=== PATIENT | male | born 1940 | race Hispanic/Latino ===

== ENCOUNTER 2017-05-22 13:37 | Emergency (ER) | payer MEDICARE, OTHER ==
[2017-05-22 16:30] LABS: Basophils # (Auto) 0.1 K/mm3 (0.0-0.1); Basophils % (Auto) 0.3 % (0.0-1.8); Eosinophils # (Auto) 0.3 K/mm3 (0.0-0.4); Eosinophils % (Auto) 2.1 % (0.0-4.3); Hemoglobin 10.4 gm/dl (11.8-15.2); Lymphocytes # (Auto) 1.6 K/mm3 (1.2-5.4); Lymphocytes % (Auto) 9.9 % (13.4-35.0); Mean Corpuscular HGB Conc 33 % (32-34); Mean Corpuscular Hemoglobin 31 pg (28-32); Mean Corpuscular Volume 96 fl (84-94); Monocytes # (Auto) 1.4 K/mm3 (0.0-0.8); Platelet Count 337 K/mm3 (140-440); Red Blood Count 3.34 M/mm3 (3.65-5.03); Red Cell Distribution Width 14.6 % (13.2-15.2)
[2017-05-22 17:03] LABS: Albumin 3.3 g/dL (3.9-5); Calcium 8.5 mg/dL (8.4-10.2)
--- NOTE | 2017-05-22 18:10 | Emergency Department Report ---
HPI - General Chief Complaint: Altered Mental Status Time Seen by Provider: 05/22/17 15:22 - HPI HPI: Chief complaint altered mental status History of present illness this is a patient is unable to give any further history the family brought him in because he's been having altered mental status he is here for evaluation awake and alert seems to be roughly baseline mental status was confused with history of dementia ED Past Medical Hx - Past Medical History Previous Medical History?: Yes Hx Hypertension: Yes Hx Dementia: Yes Additional medical history: huntingtons disease - Surgical History Additional Surgical History: brenda - Social History Smoking Status: Unknown if ever smoked Other Social History: Lives at a personal nursing home ED Review of Systems ROS: Stated complaint: COMBATIVE Other details as noted in HPI Comment: Unobtainable due to pts medical conditions Physical Exam - Physical Exam Vital Signs: Vital Signs 05/22/17 13:55 Temperature 97.8 F Pulse Rate 68 Respiratory 16 Rate Blood Pressure 118/73 [Right] O2 Sat by Pulse 98 Oximetry General: Patient patient is awake but disoriented he is at baseline mental status Neck was supple HEENT atraumatic normocephalic EOMI PERRLA Throat was clear no stridor or drooling Chest clear to auscultation Cardiac S1-S2 without murmur gallop or rub Abdomen soft nontender without mass Extremities without clubbing solicited edema Neuro patient is awake but disoriented strength appears grossly nonfocal sensory was unable to be examined due to patient uncooperativeness ED Course Vital Signs 05/22/17 13:55 Temperature 97.8 F Pulse Rate 68 Respiratory 16 Rate Blood Pressure 118/73 [Right] O2 Sat by Pulse 98 Oximetry - Reevaluation(s) Reevaluation #1: 05/22/17 20:13 I did end up being able to get in touch with the caregiver abigail Li who states that things states that patient has been living at her personal nursing home he's beginning these becoming more combative he plans to 89-year-old lady he had a bowel movement on the floor his current medications are not controlling him I did discuss the case with behavioral mental health and they will evaluate the patient that he recommended 1013 ED Medical Decision Making - Lab Data Result diagrams: 05/22/17 15:32 05/22/17 15:32 - Radiology Data Radiology results: report reviewed, image reviewed - Medical Decision Making Patient will need further evaluation by psychiatry given the fact that he is uncooperative and becoming combative at his living situation he was placed on 1013 awaiting further evaluation he is combative intermittently with an anger management problem his Seroquel and his current psychiatric meds are not helping and he is presently awaiting psychiatric evaluation and social work evaluation Critical care attestation.: If time is entered above; I have spent that time in minutes in the direct care of this critically ill patient, excluding procedure time. ED Disposition Clinical Impression: Combative behavior Disposition: DC/TX-65 PSY HOSP/PSY UNIT Is pt being admited?: No Does the pt Need Aspirin: No Condition: Stable Referrals: PRIMARY CARE, [Primary Care Provider] - 3-5 Days Time of Disposition: 20:15
[2017-05-22 18:23] LABS: Bacteria,Urine 4+ /HPF (Negative); Bilirubin,Urine NEG (Negative); Blood,Urine SM (Negative); Color,Urine Yellow (Yellow); Mucus,Urine FEW /HPF; Nitrite,Urine POS (Negative); Protein,Urine <15 mg/dL mg/dL (Negative); Urobilinogen,Urine < 2.0 mg/dL (<2.0)
[2017-05-22 18:25] LABS: WBC,Urine > 182.0 /HPF (0.0-6.0)
--- NOTE | 2017-05-22 18:32 | XRay Report ---
FINAL REPORT EXAM: XR CHEST 1V AP HISTORY: ams TECHNIQUE: Frontal chest radiograph. PRIORS: None. FINDINGS: The cardiomediastinal silhouette is normal. No focal consolidation. Several calcified right mid lung granulomas are seen. No pleural effusion. No pneumothorax. No acute osseous abnormality. IMPRESSION: No acute cardiopulmonary process.
--- NOTE | 2017-05-22 19:29 | Cat Scan Report ---
FINAL REPORT EXAM: CT HEAD/BRAIN WO CON HISTORY: ams TECHNIQUE: CT head without contrast PRIORS: None. FINDINGS: No acute intra-axial or extra-axial hemorrhage is identified. There is no evidence of midline shift or mass effect. There is generalized prominence of ventricles and sulci consistent with mild generalized atrophy. Beaver-white matter differentiation is intact. No acute parenchymal abnormalities seen. There are patchy and confluent hypodensities within the supratentorial white matter. Bony calvarium is grossly intact. Visualized portions of the mastoids and paranasal sinuses are unremarkable. IMPRESSION: Chronic small vessel white matter ischemic change Mild generalized atrophy
[2017-05-23] MEDS ORDERED: MACROBID PO ONE (02:31)
[2017-05-23] MEDS ORDERED: celeXA PO SCH (10:00)
[2017-05-23] MEDS ORDERED: SYNTHROID PO SCH (10:00)
[2017-05-23] MEDS ORDERED: NON-FORMULARY (Quetiapine Fumarate [Seroquel] 25 MG) PO SCH ×2 (10:00→18:00)
[2017-05-23] MEDS: TENORMIN PO SCH (11:25)
[2017-05-23] MEDS: ZESTRIL PO SCH (11:25)
[2017-05-23] MEDS: MACROBID PO SCH ×2 (11:25→23:03)
[2017-05-23] MEDS: SYNTHROID PO SCH (15:38)
[2017-05-23] MEDS ORDERED: NON-FORMULARY (Quetiapine Fumarate [Seroquel] 100 MG) PO SCH (22:00)
[2017-05-23] MEDS: DESYREL PO SCH (23:03)
[2017-05-24] MEDS: MACROBID PO SCH ×2 (11:39→22:33)
[2017-05-24] MEDS: TENORMIN PO SCH (11:40)
[2017-05-24] MEDS: ZESTRIL PO SCH (11:40)
--- NOTE | 2017-05-24 18:53 | Consultation ---
History of Present Illness - Reason for Consult Reason for consult: psych consult - History of Present Psychiatric Illness CC: "no" 76 year old WM presents to [facility]- we've been asked to eval the patient for mental health needs. Patient presents to very confused. He is unable to tell us why he's been brought to the ER. He is unable to any majority of my questions, including those related to depression, jillian, or psychosis. He AAOx1. He did shake his head no to SI/HI/AH/VH. He did deny etoh or illicit drug use. Per patient chart he has been [facility]. Medications and Allergies Allergies Allergy/AdvReac Type Severity Reaction Status Date / Time No Known Allergies Allergy Unverified 05/22/17 13:44 Home Medications Medication Instructions Recorded Confirmed Last Taken Type Atenolol [Tenormin] 25 mg PO DAILY 05/23/17 05/23/17 Unknown History Citalopram [celeXA] 10 mg PO QDAY 05/23/17 05/23/17 Unknown History Levothyroxine Sodium 50 mcg PO QDAY 05/23/17 05/23/17 Unknown History Lisinopril [Prinivil] 5 mg PO QDAY 05/23/17 05/23/17 Unknown History Quetiapine Fumarate [SEROquel] 25 mg PO Q8AM 05/23/17 05/23/17 Unknown History Quetiapine Fumarate [SEROquel] 25 mg PO QPM 05/23/17 05/23/17 Unknown History Quetiapine Fumarate [Seroquel] 100 mg PO QHS 05/23/17 05/23/17 Unknown History Trazodone HCl 50 mg PO QHS 05/23/17 05/23/17 Unknown History Active Meds: Active Medications Atenolol (Tenormin) 25 mg PO DAILY [facility] Last Admin: 05/24/17 11:40 Dose: Not Given Levothyroxine Sodium (Synthroid) 50 mcg PO DAILY@0600 [facility] Last Admin: 05/23/17 15:38 Dose: 50 mcg Lisinopril (Zestril) 5 mg PO QDAY [facility] Last Admin: 05/24/17 11:40 Dose: Not Given Nitrofurantoin Macrocrystals (Macrobid) 100 mg PO BID [facility] Stop: 05/29/17 22:01 Last Admin: 05/24/17 11:39 Dose: 100 mg Quetiapine Fumarate (Seroquel) 25 mg PO QAM@0800 [facility] Last Admin: 05/24/17 11:39 Dose: 25 mg Quetiapine Fumarate (Seroquel) 25 mg PO QPM [facility] Quetiapine Fumarate (Seroquel) 100 mg PO QHS [facility] Last Admin: 05/23/17 23:03 Dose: 100 mg Trazodone HCl (Desyrel) 50 mg PO QHS [facility] Last Admin: 05/23/17 23:03 Dose: 50 mg Past psychiatric history - Past Medical History Past Medical History: other (unknown) - past Psychiatric treatment and history psychiatric treatment history: unknown at this time- patient is on seroquel and an antidepressant- patient can' t answer why. unclear inpt, outp, suicide attempt, family psych, or substance history - Social History Social history: other (lives at [facility]iary- unknown other details) Mental Status Exam - Vital signs Last Vital Signs Temp 97.9 F 05/24/17 08:20 Pulse 66 05/24/17 08:20 Resp 18 05/24/17 12:42 BP 103/52 05/24/17 08:20 Pulse Ox 99 05/24/17 08:20 - Exam Orientation: person Affect: other (constricted) Mood: other (no answer) Thought content: other (impoverished) Thought Process: Circumstantial, Tangential, Disoriented Perceptions: none Speech: paucity Concentration: unable to pay attention Motor activity: agitated Level of consciousness: confused Memory: Recent Impaired, Remote Impaired (couldn't assess full mini mental given he wasn't answering my questions) Results Result Diagrams: 05/22/17 15:32 05/22/17 15:32 All other labs normal. Assessment and Plan Assessment and plan: 76 year old WM presents to [facility]- we've been asked to eval the patient for mental health needs. Patient presents to very confused. He is unable to tell us why he's been brought to the ER. Patient presents per chart secondary to aggressive behaviors A/P: -psychosis nos- aggressiveness- use risperdal instead of seroquel at low dose of 0.5 mg po bedtime- discussed risk, side effects -dementia with behavioral disturbance- consider aricept 5mg po daily for cognition- -will require inpt admission to address his mental health needs
[2017-05-24] MEDS: RisperDAL PO SCH (22:33)
[2017-05-24] MEDS: DESYREL PO SCH (22:33)
[2017-05-25] MEDS: SYNTHROID PO SCH (07:05)
[2017-05-25] MEDS: ZESTRIL PO SCH (11:45)
[2017-05-25] MEDS: MACROBID PO SCH ×2 (11:46→22:45)
[2017-05-25] MEDS: TENORMIN PO SCH (11:46)
[2017-05-25] MEDS: RisperDAL PO SCH (11:46)
--- NOTE | 2017-05-25 12:35 | Progress Note ---
Subjective - Reason for Consult Consult date: 05/25/17 Reason for consult: Psychiatry Follow-up - Chief Complaint Chief complaint: "Hello' 76 y.o. white male presenting to [facility] for confusion. Today patient is confused during the assessment. Patient could not tell me any information about himself or his current residence. No gestures of SI/HI's. Mental Status Exam - Vital signs Last Vital Signs Temp 98.3 F 05/25/17 09:43 Pulse 69 05/25/17 09:43 Resp 20 05/25/17 09:45 BP 104/68 05/25/17 11:46 Pulse Ox 100 05/25/17 09:45 - Exam Narrative exam: MSE: Appearance: calm Behavior: regular eye contact Speech: regular rate and tone Mood: unable to assess Affect: flat Thought Process: unable to assess Thought Content: no gestures of SI/HI's and AVH's Motor Activity: sitting up in bed Cognition: A/O x1 Insight: poor Judgment: poor Assessment and Plan Impression: Unspecified Psychosis/Aggressive at [facility]. Today patient is confused during the assessment. Recommendation/Plan: Continue 1013 with placement to inpatient psy services. Continue Risperdal 0.5 mg PO Daily for psychosis/mood, Trazodone 50 mg PO HS for sleep consolidation, and Aricept 5 mg PO HS for cognition.
[2017-05-25] MEDS: ARICEPT PO SCH (14:18)
[2017-05-25] MEDS: DESYREL PO SCH (22:45)
--- NOTE | 2017-05-26 10:49 | Progress Note ---
Subjective - Reason for Consult Consult date: 05/26/17 Reason for consult: Psychiatry Follow-up - Chief Complaint Chief complaint: "Hello" 76 y.o. white male presenting to [facility] for confusion. Today patient is more oriented today than yesterday. He was able to tell me his and his current location. Per the staff, no behavioral disturbance overnight. He denies SI/HI's and AVH's. No indications of side effects of his medication. No gestures of SI/ HI's. Mental Status Exam - Vital signs Last Vital Signs Temp 98.3 F 05/25/17 09:43 Pulse 76 05/25/17 23:40 Resp 20 05/25/17 09:45 BP 114/67 05/25/17 23:40 Pulse Ox 100 05/25/17 09:45 - Exam Narrative exam: MSE: Appearance: calm, cooperative Behavior: regular eye contact Speech: regular rate and tone Mood: "okay" Affect: congruent to mood Thought Process: circumstantial Thought Content: denies SI/HI's and AVH's Motor Activity: involuntary movement (hx of [place]'s) Cognition: A/O x3 Insight: variable Judgment: variable Assessment and Plan Impression: Unspecified Psychosis/Aggressive at longterm. Today patient is calm and cooperative during the assessment. Urine WBC 182 on admission. Psychosis has resolved. Recommendation/Plan: Rescind 1013. Continue Risperdal 0.5 mg PO Daily for mood, Trazodone 50 mg PO HS for sleep consolidation, and Aricept 5 mg PO HS for cognition. Patient can follow-up with [facility] for outpatient psy services. Patient's longterm contact is [phone] (Karli Starks).
[2017-05-26] MEDS: MACROBID PO SCH (12:35)
[2017-05-26] MEDS: RisperDAL PO SCH (12:35)
[2017-05-26] MEDS: ARICEPT PO SCH (12:35)
[2017-05-26] MEDS: ZESTRIL PO SCH (12:36)
[2017-05-26] MEDS: TENORMIN PO SCH (12:36)
[2017-05-26] MEDS ORDERED: NACL 0.9% 1000 ML 1,000 ML IV ONE (15:46)
[2017-05-26] MEDS ORDERED: ROCEPHIN/NS 1 GM/50 ML 1 GM/50 ML BAG IV ONE (15:46)
[2017-05-26] MEDS ORDERED: cefTRIAXone 1 GM in NACL 0.9% 20 ML IV ONE (16:00)
--- NOTE | 2017-05-26 16:30 | XRay Report ---
FINAL REPORT EXAM: XR CHEST 1V AP HISTORY: CECILIO TECHNIQUE: AP portable view of the chest PRIORS: CXR 05/22/2017 FINDINGS: Lines, tubes, and devices: N/A Lungs and pleura: Trachea is normal in position. Lungs are clear of infiltrate, pleural effusion, vascular congestion, or pneumothorax. No change. Cardiomediastinal silhouette: Cardiac and mediastinal silhouettes are unremarkable. Other: Bony structures are intact. IMPRESSION: No acute cardiopulmonary process seen. No change.
[2017-05-26 16:44] LABS: Basophils # (Auto) 0.1 K/mm3 (0.0-0.1); Basophils % (Auto) 1.2 % (0.0-1.8); Eosinophils # (Auto) 0.4 K/mm3 (0.0-0.4); Eosinophils % (Auto) 6.3 % (0.0-4.3); Hematocrit 34.1 % (35.5-45.6); Hemoglobin 11.5 gm/dl (11.8-15.2); Lymphocytes # (Auto) 1.4 K/mm3 (1.2-5.4); Mean Corpuscular HGB Conc 34 % (32-34); Mean Corpuscular Hemoglobin 33 pg (28-32); Mean Corpuscular Volume 96 fl (84-94); Monocytes # (Auto) 0.6 K/mm3 (0.0-0.8); Monocytes % (Auto) 8.5 % (0.0-7.3); Platelet Count 327 K/mm3 (140-440); Red Blood Count 3.55 M/mm3 (3.65-5.03); Red Cell Distribution Width 14.8 % (13.2-15.2)
[2017-05-26 16:55] LABS: INR 0.92 (0.87-1.13); Partial Thromboplastin Time 26.9 Sec. (24.2-36.6)
[2017-05-26 17:03] LABS: Alanine Aminotransferase 11 units/L (7-56); Albumin 3.1 g/dL (3.9-5)
[2017-05-26 17:06] LABS: Bilirubin,Direct < 0.2 mg/dL (0-0.2)
[2017-05-26 17:39] LABS: Bilirubin,Urine NEG (Negative); Blood,Urine NEG (Negative); Color,Urine Yellow (Yellow); Mucus,Urine FEW /HPF; Nitrite,Urine NEG (Negative); Protein,Urine <15 mg/dL mg/dL (Negative); Urobilinogen,Urine < 2.0 mg/dL (<2.0)
[2017-05-26] MEDS: DESYREL PO SCH (22:44)
[2017-05-27] MEDS: SYNTHROID PO SCH (06:08)
[2017-05-27] MEDS: MACROBID PO SCH (10:31)
[2017-05-27] MEDS: ZESTRIL PO SCH (10:32)
[2017-05-27] MEDS: TENORMIN PO SCH (10:32)
[2017-05-27] MEDS: RisperDAL PO SCH (10:32)
[2017-05-27] MEDS: ARICEPT PO SCH (11:34)
--- NOTE | 2017-05-27 14:38 | Ultrasound Report ---
ULTRASOUND RENAL BILATERAL HISTORY: Renal failure. TECHNIQUE: transabdominal ultrasound with color Doppler interrogation. FINDINGS: The kidneys are normal size, contour and position. There is increased renal parenchymal echotexture bilaterally. Corticomedullary differentiation is preserved. No evidence for cystic disease, mass, calculus, hydronephrosis or perinephric fluid. The views of the bladder and the region of the ureters appear normal. IMPRESSION: Slightly echogenic kidneys consistent with nonspecific renal parenchymal disease. No obstructive uropathy.
[2017-05-27 15:26] LABS: BUN/Creatinine Ratio TNR; Blood Urea Nitrogen TNR mg/dL (9-20); Calcium TNR mg/dL (8.4-10.2); Hemolysis Index TNR
[2017-05-27 16:15] LABS: BUN/Creatinine Ratio 19; Blood Urea Nitrogen 19 mg/dL (9-20); Calcium 8.6 mg/dL (8.4-10.2); Hemolysis Index 29
[2017-05-27 18:45] VITALS: BP 119/76
== END 2017-05-27 18:44 ==
LOC: ED 13:37 → EEVIPCON 13:37 → ED 05-27 18:44
DX: R41.82 Altered mental status, unspecified (principal); I10 Essential (primary) hypertension; F03.90 Unspecified dementia, unspecified severity, without behavioral disturbance, psychotic disturbance, mood disturbance, and anxiety; Z79.899 Other long term (current) drug therapy
CPT/HCPCS: 36415; 70450; 71010; 76770; 80048; 80053; 80074; 81001; 82140; 84153; 85025; 85610; 85730; 87040; 87086; 93005; 93010; 99285; J0696; J7030